=== PATIENT | female | born 1945 | race Caucasian/White ===

== ENCOUNTER 2017-10-09 11:45 | Emergency (ER) | payer MEDICARE, OTHER ==
[2017-10-09] MEDS ORDERED: MORPHINE SULFATE 10 MG/ML INJ IV ONE ×4 (13:05→22:02)
--- NOTE | 2017-10-09 13:06 | ER Document Report ---
ED Neck/Back Problem - General Mode of Arrival: Medic Information source: Patient TRAVEL OUTSIDE OF THE [place] IN LAST 30 DAYS: No <WAQAS STERN - Last Filed: 10/09/17 19:28> <VANIA SINGER - Last Filed: 10/10/17 00:00> - General Chief Complaint: Back Pain Stated Complaint: BACK PAIN Time Seen by Provider: 10/09/17 12:32 Notes: Patient is a 71-year-old female with a history of heart attack, high blood pressure and cholesterol who presents to the ER today for acute lower abdominal pain that started prior to arrival. Patient states that she was using the bathroom, having a bowel movement whenever she started to have severe abdominal pain and "bent over more" but started sweating and then had a small bowel movement that was normal. Patient then states that since that time she has had multiple bowel movements that gave her a lot of abdominal pain but that were softer than normal for her. She states they were very dark in color. She denies any fever but admits that she got very hot and sweaty during these episodes on the toilet. She does have a history of colitis but denies ulcerative colitis or Crohn's. She states that she has been treated with antibiotics for colitis in the past. Patient has had a recent colonoscopy that showed no diverticula, etc. Patient does not have her appendix. (WAQAS STERN) - Related Data Allergies/Adverse Reactions: Sulfa (Sulfonamide Antibiotics) Adverse Reaction (Verified 04/05/11 13:43) Home Medications: Current Home Medications Aspirin [Aspirin EC] 81 mg PO DAILY 10/09/17 [History] Diazepam [Valium 5 mg Tablet] 5 mg PO QHS 10/09/17 [History] Ergocalciferol (Vitamin D2) [Vitamin D2] 50,000 unit PO SA@1000 10/09/17 [ History] Lisinopril [Prinivil] 20 mg PO Q12 10/09/17 [History] Metoprolol Succinate [Toprol XL 100 mg Tablet] 100 mg PO Q12 10/09/17 [History] Nitroglycerin [Nitrostat 0.4 mg (1/150 Gr) Tabs 25/Bottle] 1 tab SL Q5MP PRN [History] Oxycodone HCl/Acetaminophen [Percocet 5-325 mg Tablet] 0.5 tab PO QIDP PRN 10/09 [History] Pantoprazole Sodium [Protonix] 40 mg PO Q12 10/09/17 [History] Pravastatin Sodium [Pravachol] 40 mg PO DAILY 10/09/17 [History] Pregabalin [Lyrica 50 Mg Capsule] 50 mg PO Q6 10/09/17 [History] Past Medical History - General Information source: Patient - Social History Smoking Status: Former Smoker Chew tobacco use (# tins/day): No Frequency of alcohol use: None Drug Abuse: None Family History: Reviewed & Not Pertinent Patient has suicidal ideation: No Patient has homicidal ideation: No - Past Medical History Cardiac Medical History: Reports: Hx Heart Attack - Jul 2009, Hx Hypertension Denies: Hx Coronary Artery Disease Pulmonary Medical History: Reports: Hx Pneumonia - hx of Denies: Hx Asthma, Hx Bronchitis, Hx COPD Neurological Medical History: Denies: Hx Cerebrovascular Accident, Hx Seizures Endocrine Medical History: Reports: Hx Diabetes Mellitus Type 2 Renal/ Medical History: Denies: Hx Peritoneal Dialysis Musculoskeltal Medical History: Denies Hx Arthritis Past Surgical History: Reports: Hx Hysterectomy. Denies: Hx Pacemaker <WAQAS STERN - Last Filed: 10/09/17 19:28> Review of Systems - Review of Systems Constitutional: See HPI EENT: No symptoms reported Cardiovascular: No symptoms reported Respiratory: No symptoms reported Gastrointestinal: See HPI Genitourinary: No symptoms reported Female Genitourinary: No symptoms reported Musculoskeletal: No symptoms reported Skin: No symptoms reported Hematologic/Lymphatic: No symptoms reported Neurological/Psychological: No symptoms reported <WAQAS STERN - Last Filed: 10/09/17 19:28> Physical Exam <WAQAS STERN - Last Filed: 10/09/17 19:28> <VANIA SINGER - Last Filed: 10/10/17 00:00> - Vital signs Vitals: Temp Pulse Resp BP Pulse Ox 97.4 F 63 16 149/50 H 94 10/09/17 11:59 10/09/17 11:59 10/09/17 11:59 10/09/17 11:59 10/09/17 11:59 - Notes Notes: PHYSICAL EXAMINATION: GENERAL: obviously uncomfortable, but in no acute distress. HEAD: Atraumatic, normocephalic. EYES: Pupils equal round and reactive to light, extraocular movements intact, sclera anicteric, conjunctiva are normal. NECK: Normal range of motion, supple without lymphadenopathy LUNGS: CTAB and equal. No wheezes rales or rhonchi. HEART: Regular rate and rhythm without murmurs ABDOMEN: Soft, mild rlq and periumbilical tenderness. No guarding, no rebound BACK: no vertebral tenderness, normal ROM GI/: no CVA tenderness rectal: good tone, external hemorrhoid noted, no blood EXTREMITIES: Normal range of motion, no pitting edema. No cyanosis. NEUROLOGICAL: Cranial nerves grossly intact. Normal sensory/motor exams. PSYCH: Normal mood, normal affect. SKIN: Warm, Dry, normal turgor, no rashes or lesions noted (WAQAS STERN) Course - Laboratory Result Diagrams: 10/09/17 13:06 10/09/17 13:06 <WAQAS STERN - Last Filed: 10/09/17 19:28> - Laboratory Result Diagrams: 10/09/17 13:06 10/09/17 13:06 <VANIA SINGER - Last Filed: 10/10/17 00:00> - Re-evaluation Re-evalutation: 10/09/17 18:52 White count is 27.7 today, lactic acid is normal. CAT scan of the abdomen with IV and oral contrast reveals a probable ischemic colitis of the mid transverse and descending bowel, Dr. Larsen, evaluated the patient and states that since we do not have vascular surgery or gastroenterology, it is in the patient's best interest to be transferred, patient has had doctors at [facility] whenever she had her heart attack and would like to go there. [facility] has been called and I am awaiting callback for transfer. 10/09/17 19:28 Care handed over to Vania Singer PA-C at this time. (WAQAS STERN) 10/09/17 20:20 Dr. Davalos (Vascular) accepted patient and would like a rapid transport to [facility]. Reviewed with family/pt who are in agreement with plan. Pt has no new concerns or complaints. Pt was given 1L NS bolus and started on 125ml/hr maintenance. Vitals are stable 10/09/17 23:59 Zofran 4mg given IV pt has no other new concerns or complaints at this time. Vitals stable. Pt stable for transport. (VANIA SINGER) - Vital Signs Vital signs: Temp Pulse Resp BP Pulse Ox 99.0 F 81 14 156/67 H 95 10/09/17 18:41 10/09/17 18:41 10/09/17 23:01 10/09/17 23:01 10/09/17 23:01 - Laboratory Laboratory results interpreted by me: 10/09/17 10/09/17 10/09/17 13:06 13:06 16:45 WBC 27.7 H Seg Neuts % (Manual) 83 H Band Neutrophils % 1 L Lymphocytes % (Manual) 8 L Abs Neuts (Manual) 23.3 H Abs Monocytes (Manual) 1.9 H Sodium 130.2 L Chloride 94 L Glucose 178 H Ur Leukocyte Esterase TRACE H Urine Ascorbic Acid 40 H Discharge <WAQAS STERN - Last Filed: 10/09/17 19:28> <VANIA SINGER - Last Filed: 10/10/17 00:00> - Discharge Clinical Impression: Acute ischemic colitis Condition: Stable Referrals: WARD CASILLAS MD [Primary Care Provider] - Follow up as needed
[2017-10-09 13:26] LABS: HEMOGLOBIN 13.3 g/dL (12.0-15.5); HGB HCT DIFFERENCE 0.9; MEAN CORPUSCULAR HEMOGLOBIN 30.3 pg (27.0-33.4); MEAN CORPUSCULAR HGB CONC 34.1 g/dL (32.0-36.0); MEAN CORPUSCULAR VOLUME 89 fl (80-97); RED CELL DISTRIBUTION WIDTH 13.3 % (11.5-14.0); WHITE BLOOD COUNT 27.7 10^3/uL (4.0-10.5)
[2017-10-09 13:57] LABS: ALANINE AMINOTRANSFERASE 26 U/L (9-52); ALKALINE PHOSPHATASE 80 U/L (38-126); ANION GAP 11 (5-19); ASPARTATE AMINO TRANSFERASE 27 U/L (14-36); BILIRUBIN,DIRECT 0.3 mg/dL (0.0-0.4); BILIRUBIN,TOTAL 0.4 mg/dL (0.2-1.3); BLOOD UREA NITROGEN 12 mg/dL (7-20); CALCIUM 9.2 mg/dL (8.4-10.2); CARBON DIOXIDE 25 mmol/L (22-30); CHLORIDE 94 mmol/L (98-107); CREATININE RESULT 0.74 mg/dL (0.52-1.25); GLUCOSE 178 mg/dL (75-110); POTASSIUM 4.5 mmol/L (3.6-5.0); SODIUM 130.2 mmol/L (137-145); TOTAL PROTEIN 6.7 g/dL (6.3-8.2)
[2017-10-09 14:16] LABS: BAND NEUTROPHILS % (MANUAL) 1 % (3-5); BASOPHILS % (MANUAL) 0 % (0-2); EOSINOPHILS % (MANUAL) 0 % (0-6); LYMPHOCYTES % (MANUAL) 8 % (13-45); RBC MORPHOLOGY COMMENT NORMO-CYTIC/CHROMIC; TOTAL CELLS COUNTED 100; TOXIC GRANULATION SLIGHT; TOXIC VACUOLATION PRESENT
[2017-10-09] MEDS ORDERED: PROMETHAZINE HCL 25 MG TABLET PO ONE (15:49)
[2017-10-09 17:18] LABS: APPEARANCE,URINE SLIGHTLY-CLOUDY; BILIRUBIN,URINE NEGATIVE (NEGATIVE); GLUCOSE, URINE NEGATIVE (NEGATIVE); KETONES,URINE NEGATIVE (NEGATIVE); LEUKOCYTE ESTERASE,URINE TRACE (NEGATIVE); NITRITE,URINE NEGATIVE (NEGATIVE); PROTEIN,URINE NEGATIVE (NEGATIVE); URINE SPECIFIC GRAVITY 1.006; UROBILINOGEN,URINE NEGATIVE mg/dL (<2.0)
--- NOTE | 2017-10-09 18:12 | RADIOLOGY REPORT (SQ) ---
EXAM DESCRIPTION: CT ABD/PELVIS WITH IV ORAL COMPLETED DATE/TIME: 10/09/2017 5:57 pm REASON FOR STUDY: abd pain, leukocytosis, black stool? COMPARISON: None. TECHNIQUE: CT scan of the abdomen and pelvis performed with intravenous and oral contrast using iraj shari scanning technique with dynamic intravenous contrast injection. Images reviewed with lung, soft t issue, and bone windows. Reconstructed coronal and sagittal MPR images reviewed. Delayed images for e valuation of the urinary system also acquired. All images stored on PACS. All CT scanners at this facility use dose modulation, iterative reconstruction, and/or weight based d osing when appropriate to reduce radiation dose to as low as reasonably achievable (ALARA). [facility]: Dose Right [facility]: CareDose [facility]: Dose Right [facility]: Teradose 4D [facility]: ICTC GROUP CONTRAST TYPE AND DOSE: 100 Isovue 370- low osmolar. RENAL FUNCTION: GFR > 60. RADIATION DOSE: . LIMITATIONS: None. FINDINGS: LOWER CHEST: No significant findings. No nodules or infiltrates. LIVER: Normal size. No masses. No dilated ducts. SPLEEN: Normal size. No focal lesions. PANCREAS: No masses. No significant calcifications. No adjacent inflammation or peripancreatic fluid collections. Pancreatic duct not dilated. GALLBLADDER: No identified stones by CT criteria. No inflammatory changes to suggest cholecystitis. ADRENAL GLANDS: No significant masses or asymmetry. RIGHT KIDNEY AND URETER: No solid masses. No significant calcifications. No hydronephrosis or hyd roureter. LEFT KIDNEY AND URETER: No solid masses. No significant calcifications. No hydronephrosis or hydr oureter. AORTA AND VESSELS: No aneurysm. No dissection. Renal arteries, SMA, celiac without stenosis. RETROPERITONEUM: No retroperitoneal adenopathy, hemorrhage or masses. BOWEL AND PERITONEAL CAVITY: Marked mucosal edema and bowel wall thickening from the mid transverse c olon to the mid descending colon. Distribution and appearance strongly suggest ischemic colitis. APPENDIX: Surgically absent. PELVIS: No significant masses. Normal bladder. No free fluid. ABDOMINAL WALL: No masses are hernias. Surgical clips. BONES: Just posterior to the pubic symphysis is a curvilinear calcification or metal density of uncer tain margin. Likely of no clinical significance . OTHER: No other significant finding. IMPRESSION: Colitis most likely ischemic from mid transverse to mid descending colons. No perforati on. TECHNICAL DOCUMENTATION: JOB ID: [id number] Quality ID # [id number]: Final reports with documentation of one or more dose reduction techniques (e.g., Au tomated exposure control, adjustment of the mA and/or kV according to patient size, use of iterative reconstruction technique) 2010 [employer]- All Rights Reserved
[2017-10-09] MEDS ORDERED: NORMAL SALINE 1000 ML 1,000 ML IV ONE (19:20)
[2017-10-09] MEDS ORDERED: NORMAL SALINE 1000 ML 1,000 ML IV PRN (20:13)
[2017-10-09 23:10] VITALS: BP 156/67
--- NOTE | 2017-10-09 23:18 | EKG REPORT ---
SEVERITY:- NORMAL ECG - SINUS RHYTHM : Confirmed by: Rober Mckeon MD 09-Oct-2017 23:17:31
[2017-10-09] MEDS ORDERED: ONDANSETRON HCL INJ/PF 4 MG/2 ML SDV IV ONE (23:59)
[2017-10-10] MEDS ORDERED: ONDANSETRON HCL INJ/PF 4 MG/2 ML SDV ONE
== END 2017-10-10 00:19 | disposition short-term general hospital (02) ==
LOC: ER 11:45
DX: K55.9 Vascular disorder of intestine, unspecified (principal); M54.9 Dorsalgia, unspecified; I25.2 Old myocardial infarction; R03.0 Elevated blood-pressure reading, without diagnosis of hypertension; E78.00 Pure hypercholesterolemia, unspecified; Z79.899 Other long term (current) drug therapy; Z87.891 Personal history of nicotine dependence
CPT/HCPCS: 93005; 96376; 99285; 96361; 96374; 96375; 36415; 87040; 83605; 85025; 82272; 80053; 81001; 74177; 93010; J2270; A9270; J2405; J7030

== ENCOUNTER → 2019-04-16 | Outpatient (CLI) | payer MEDICARE, OTHER ==
--- NOTE | 2019-04-16 17:06 | RADIOLOGY REPORT (SQ) ---
EXAM DESCRIPTION: KNEE RIGHT 2 VIEWS COMPLETED DATE/TIME: 04/16/2019 4:48 pm REASON FOR STUDY: PAIN IN RT KNEE; PAIN IN LEFT SHOULDER M25.561 PAIN IN RIGHT KNEE M25.512 PAIN I N LEFT SHOULDER COMPARISON: None. NUMBER OF VIEWS: Four views. TECHNIQUE: AP, lateral, and both oblique radiographic images acquired of the right knee. LIMITATIONS: None. FINDINGS: MINERALIZATION: Normal. BONES: No acute fracture or dislocation. No worrisome bone lesions. JOINT: Mild joint space narrowing in all compartments. SOFT TISSUES: No soft tissue swelling. No radio-opaque foreign body. OTHER: No other significant finding. IMPRESSION: Mild osteoarthritic changes with joint space narrowing in all compartments. TECHNICAL DOCUMENTATION: JOB ID: [id number] [employer]- All Rights Reserved Reading location - IP/workstation name: [email or web address]
--- NOTE | 2019-04-16 17:29 | RADIOLOGY REPORT (SQ) ---
EXAM DESCRIPTION: SHOULDER LEFT 1 VIEW COMPLETED DATE/TIME: 04/16/2019 4:48 pm REASON FOR STUDY: PAIN IN RT KNEE; PAIN IN LEFT SHOULDER M25.561 PAIN IN RIGHT KNEE M25.512 PAIN I N LEFT SHOULDER COMPARISON: None. NUMBER OF VIEWS: One view. TECHNIQUE: Externally rotated AP view images acquired of the left shoulder. LIMITATIONS: None. FINDINGS: MINERALIZATION: Normal. BONES: No acute fracture or dislocation. No worrisome bone lesions. JOINTS: No dislocation. VISUALIZED LUNGS AND RIBS: No pneumothorax. No rib fracture. SOFT TISSUES: No radiopaque foreign body. OTHER: No other significant finding. IMPRESSION: NEGATIVE STUDY OF THE LEFT SHOULDER. NO RADIOGRAPHIC EVIDENCE OF ACUTE INJURY. TECHNICAL DOCUMENTATION: JOB ID: [id number] [employer]- All Rights Reserved Reading location - IP/workstation name: [email or web address]
== END ==
LOC: OD 16:27
PROVIDERS: ATTEND Internal Medicine
DX: M25.561 Pain in right knee (principal); M25.512 Pain in left shoulder

== ENCOUNTER → 2019-07-13 | Outpatient (CLI) | payer MEDICARE, OTHER ==
--- NOTE | 2019-07-13 11:22 | RADIOLOGY REPORT (SQ) ---
EXAM DESCRIPTION: CHEST PA/LATERAL COMPLETED DATE/TIME: 07/13/2019 11:10 am REASON FOR STUDY: COUGH COMPARISON: AP chest 07/13/2009 EXAM PARAMETERS: NUMBER OF VIEWS: two views TECHNIQUE: Digital Frontal and Lateral radiographic views of the chest acquired. RADIATION DOSE: NA LIMITATIONS: none FINDINGS: LUNGS AND PLEURA: No opacities, masses or pneumothorax. No pleural effusion. MEDIASTINUM AND HILAR STRUCTURES: No masses or contour abnormalities. HEART AND VASCULAR STRUCTURES: Heart normal size. No evidence for failure. BONES: No acute findings. HARDWARE: None in the chest. OTHER: No other significant finding. IMPRESSION: NO SIGNIFICANT RADIOGRAPHIC FINDING IN THE CHEST. TECHNICAL DOCUMENTATION: JOB ID: [id number] [employer]- All Rights Reserved Reading location - IP/workstation name: [email or web address]
== END ==
LOC: OD 10:57
PROVIDERS: ATTEND Internal Medicine
DX: R05 Cough (principal)
CPT/HCPCS: 71046

== ENCOUNTER → 2019-07-21 | Outpatient (CLI) | payer MEDICARE, OTHER ==
--- NOTE | 2019-07-21 13:58 | RADIOLOGY REPORT (SQ) ---
EXAM DESCRIPTION: MRI LT UPPER JOINT WITHOUT COMPLETED DATE/TIME: 07/21/2019 11:41 am REASON FOR STUDY: LEFT SHOULDER PAIN M25.512 M25.512 PAIN IN LEFT SHOULDER COMPARISON: 04/16/2019 radiographs. TECHNIQUE: Left shoulder images acquired and stored on PACS. Multiplanar imaging to include fat sens itive sequences such as T1, water sensitive sequences such as FST2/STIR, cartilage sensitive sequence s such as FSPD/gradient-echo sequences. LIMITATIONS: None. FINDINGS: BONE MARROW AND CORTEX: Abnormal appearance throughout the lateral humeral head. Flattene d irregular appearance with fracture lines and edema partially involving the greater tuberosity and e xtending into the lateral head. No displaced fracture identified. Minimally heterogeneous marrow in the neck of the humerus and proximal humeral shaft also. Edema here is milder in appearance (and ma y largely represent red marrow). Again, no displaced fracture. JOINT OR BURSAL EFFUSION: Mild effusion and trace bursitis. No large loose bodies. GLENO-HUMERAL ARTICULATION: No significant subluxation or dislocation or focal chondral lesions. ACROMION AND AC JOINT: Intact without widening. No bulky overgrowth. Preserved subacromial space ge nerally. ROTATOR CUFF AND INTERVAL: Tendinosis in the cuff. Mild calcific tendinitis. Partial tear not exclu ded but no full-thickness breech is clearly detected. Mild loss of muscle bulk in the cuff, slight g eneralized atrophy. LABRUM AND BICEPS LABRAL COMPLEX: Intact. No labral tear. Intra-articular long-head biceps tendon n ormal. Distal biceps in normal location in bicipital groove. REMAINDER OF LABRUM AND IGHL : No gross tear or paralabral cyst formation. Labral evaluation is less than optimal without joint distention. No thickening of IGHL to suggest adhesive capsulitis. PERIARTICULAR AND ADJACENT SOFT TISSUES: No masses or abnormal nodes. OTHER: No other significant finding. IMPRESSION: 1. Nondisplaced fracture deformities in the proximal humerus, as above. 2. Cuff tendinosis without evidence of full-thickness tear. 3. Other findings as above. TECHNICAL DOCUMENTATION: JOB ID: [id number] [employer]- All Rights Reserved Reading location - IP/workstation name: [email or web address] [id number]
== END ==
LOC: RAD 10:36
PROVIDERS: ATTEND Internal Medicine
DX: S42.255A Nondisplaced fracture of greater tuberosity of left humerus, initial encounter for closed fracture (principal); X58.XXXA Exposure to other specified factors, initial encounter; M25.512 Pain in left shoulder

== ENCOUNTER → 2020-03-20 | Outpatient (CLI) | payer MEDICARE, OTHER ==
--- NOTE | 2020-03-21 08:39 | RADIOLOGY REPORT (SQ) ---
EXAM DESCRIPTION: CT CHEST WITH IMAGES COMPLETED DATE/TIME: 03/20/2020 1:45 pm REASON FOR STUDY: R05 COUGH R05 COUGH COMPARISON: 07/13/2019 TECHNIQUE: CT scan of the chest performed using helical scanning technique with dynamic intravenous contrast injection. Images reviewed with lung, soft tissue and bone windows. Reconstructed coronal and sagittal MPR and MIP images reviewed. All images stored on PACS. All CT scanners at this facility use dose modulation, iterative reconstruction, and/or weight based d osing when appropriate to reduce radiation dose to as low as reasonably achievable (ALARA). [facility]: Dose Right [facility]: CareDose [facility]: Dose Right [facility]: Teradose 4D [facility]: Thumbs Up CONTRAST TYPE AND DOSE: contrast/concentration: Isovue 350.00 mg/ml; Total Contrast Delivered: 79.0 ml; Total Saline Delivered: 55.0 ml RENAL FUNCTION: Creatinine 0.9 RADIATION DOSE: CT Rad equipment meets quality standard of care and radiation dose reduction techniq ues were employed. CTDIvol: 3.0 mGy. DLP: 119 mGy-cm. . LIMITATIONS: None. FINDINGS: LUNGS AND PLEURA: Mild bilateral centrilobular emphysematous changes. Small subpleural bl ebs. No consolidation. No suspicious pulmonary nodules. No pleural effusions. HILAR AND MEDIASTINAL STRUCTURES: No pathologic adenopathy. HEART AND VASCULAR STRUCTURES: No aneurysm or dissection. No central pulmonary emboli. No pericardi al effusion. HARDWARE: None in the chest. UPPER ABDOMEN: No significant findings. Limited exam. THYROID AND OTHER SOFT TISSUES: No masses. No adenopathy. BONES: Degenerative changes in the spine. OTHER: No other significant finding. IMPRESSION: Centrilobular emphysematous changes. No consolidation. TECHNICAL DOCUMENTATION: JOB ID: [id number] Quality ID # [id number]: Final reports with documentation of one or more dose reduction techniques (e.g., Au tomated exposure control, adjustment of the mA and/or kV according to patient size, use of iterative reconstruction technique) 2010 [employer]- All Rights Reserved Reading location - IP/workstation name: [email or web address]
== END ==
LOC: RAD 12:56
PROVIDERS: ATTEND Internal Medicine
DX: J43.2 Centrilobular emphysema (principal); R05 Cough; R63.4 Abnormal weight loss
CPT/HCPCS: 71260; 82565